=== PATIENT | female | born 1970 | race Caucasian/White ===

== ENCOUNTER 2019-08-16 16:38 | Outpatient (CLI) | payer OTHER, SELFPAY ==
--- NOTE | ~2019-08-16 | MR_ITS ---
EXAMINATION: MR brain/brain stem wo con DATE: 08/16/2019 17:45 INDICATION: Loss of memory. TECHNIQUE: Magnetic resonance imaging (MRI) of the brain and brainstem was performed without intraven ous contrast. Sequences included sagittal and axial T1-weighted FSE, axial diffusion-weighted FS EPI, axial T2*-weighted GRE, axial T2-weighted FLAIR Propeller, and axial T2-weighted Propeller. Apparent diffusion coefficient (ADC) maps were created. COMPARISON: None. FINDINGS: There is no intracranial hemorrhage, acute infarction, or abnormal intracranial mass lesion . The ventricles are normal in size. There is a mucous retention cyst in left maxillary sinus. There is mild mucosal thickening in the ethmoid sinuses. The orbits are normal. The mastoid air cells are n ormal. IMPRESSION: 1. Normal brain. Reviewed, dictated and finalized at location A. IMPRESSION: 1. Normal brain.
== END 2019-08-16 16:39 | disposition home or self-care (01) ==
PROVIDERS: PCP Nurse Practitioner Family; Visit Provider Nurse Practitioner Family
DX: R41.3 Other amnesia (principal); Z87.828 Personal history of other (healed) physical injury and trauma; R41.840 Attention and concentration deficit
CPT/HCPCS: 70551

== ENCOUNTER → 2020-01-04 15:16 | Outpatient (CLI) | payer OTHER, SELFPAY ==
--- NOTE | ~2020-01-04 | MR_ITS ---
EXAMINATION: MR humerus LT wo con DATE: 01/04/2020 16:06 INDICATION: Left upper extremity pain TECHNIQUE: Magnetic resonance imaging (MRI) of the left upper/humerus was performed without intraveno us contrast. A marker was placed over the site of maximal pain. Sequences included axial, sagittal a nd coronal T1-weighted FSE, axial T2-weighted FS FSE, and sagittal and coronal fluid sensitive FSE ST IR. COMPARISON: None. FINDINGS: Bone alignment is normal with normal marrow signal throughout. No joint effusions at the left shoulde r or elbow. The musculature demonstrates normal bulk and signal. Visualized portions of the tendons a ppear normal. No reactive edema. No abnormal masses or fluid collections identified. IMPRESSION: 1. Normal MRI of the left upper arm/humerus. No etiology identified for reported pain at the proximal /lateral left upper arm. Reviewed, dictated and finalized at location A. IMPRESSION: 1. Normal MRI of the left upper arm/humerus. No etiology identified for reporte d pain at the proximal/lateral left upper arm.
== END ==
PROVIDERS: Visit Provider Nurse Practitioner Family
DX: M79.602 Pain in left arm (principal); M25.612 Stiffness of left shoulder, not elsewhere classified
CPT/HCPCS: 73218

== ENCOUNTER 2020-03-15 11:21 | Emergency (ER) | payer OTHER, SELFPAY ==
--- NOTE | ~2020-03-15 | XR_ITS ---
EXAMINATION: XR chest 2V 03/15/2020 11:49 INDICATION: Hypertension. Shortness of breath. PROCEDURE: PA and lateral views of the chest COMPARISON: 07/06/2014 FINDINGS: The lungs are clear. The cardiomediastinal silhouette is within normal limits. There are no pleural effusions. There is no pneumothorax suspected. IMPRESSION: 1: NO ACUTE CARDIOPULMONARY DISEASE. Reviewed, dictated and finalized at location B.
--- NOTE | ~2020-03-15 | CT_ITS ---
EXAMINATION: CTA chest PE protocol DATE: 03/15/2020 13:45 CDT INDICATION: Chest palpitations TECHNIQUE: Computed tomographic angiography (CTA) of the chest was performed with 100 mL Omnipaque-35 0 intravenous contrast. The dose-length product was 209.67 mGy-cm. Maximum intensity projection 3D-re constructions of the aorta and other arteries were constructed by the technologist on a separate work station. Automated exposure control and iterative reconstruction technique were employed. COMPARISON: CT dated 01/14/2018 FINDINGS: The study is technically adequate without evidence for pulmonary embolism. Heart size charly l. No significant pleural or pericardial effusion. No thoracic lymphadenopathy. Bibasilar dependent a telectasis. No endobronchial lesions. Visualized aspects of the upper abdomen are unremarkable. Study limited by motion artifact. No endobronchial lesions. No suspicious pulmonary nodules or masses. No pneumothorax. Calcified granuloma in the lingula. No acute osseous abnormality. IMPRESSION: 1. No evidence for pulmonary embolism. No acute cardiopulmonary disease. Reviewed, dictated and finalized at location B.
[2020-03-15 11:25] VITALS: BP 158/88; PULSE 99; RESP 17; TEMP 36.3; O2SAT 100
--- NOTE | 2020-03-15 11:30 | ECG_ITS ---
Measurements Intervals [place] Rate: 82 P: 69 W[place]: 135 QRS: 56 QRSD: 73 T: 52 QT: 343 QTc: 402 Interpretive Statements SINUS RHYTHM WITH SINUS ARRHYTHMIA LOW QRS VOLTAGE IN PRECORDIAL LEADS BORDERLINE ST ABNORMALITY- ANTEROLATERAL LEADS BASELINE ARTIFACT- I, II, AVR, AVL BORDERLINE ECG Electronically Signed On 03-15-2020 11:52:49 CDT by Flo Gipson D.O.
[2020-03-15 11:53] LABS: Basophils Percent Auto 0.5 % (0.2-1.2); Eosinophils Percent Auto 0.3 % (0-4.4); Hematocrit 41.9 % (37.0-47.0); Hemoglobin 13.6 g/dL (12.0-15.0); Immature Granulocyte Absolute 0.01 K/mm3 (0.00-0.031); Immature Granulocyte Percent A 0.2 % (0-0.5); Lymphocytes Absolute Auto 0.82 K/mm3 (0.9-3.2); Lymphocytes Percent Auto 12.5 % (18.3-44.2); Mean Corpuscular HGB Conc 32.5 g/dl (32-36); Mean Corpuscular Hemoglobin 29.4 pg (26-34); Mean Corpuscular Volume 90.5 fl (80-100); Mean Platelet Volume 9.2 fl (7.4-10.4); Monocytes Absolute Auto 0.3 K/mm3 (0.1-0.6); Monocytes Percent Auto 5.2 % (2.6-8.5); Neutrophils Absolute Auto 5.3 K/mm3 (1.3-6.7); Neutrophils Percent Auto 81.3 % (45.5-73.1); Platelet Count Result 313 k/mm3 (150-375); Red Blood Count 4.63 M/mm3 (4.2-5.4); Red Cell Distribution Width 13.4 % (11.5-14.5); White Blood Count 6.6 K/mm3 (4.5-10.0)
[2020-03-15 12:03] LABS: INR 0.9; Prothrombin Time 12.2 Seconds (11.1-14.7)
[2020-03-15 12:04] LABS: Partial Thromboplastin Time 28.1 SECONDS (22.3-36.8)
[2020-03-15 12:06] LABS: Anion Gap 11 mmol/L (8-16); Blood Urea Nitrogen 12 mg/dL (7-17); Calcium 9.9 mg/dL (8.4-10.2); Carbon Dioxide 25 mmol/L (22-30); Chloride 105 mmol/L (98-107); Estimated CRCL calculation 70 ml/min; Estimated Glomerular Filt Rate > 60; Glucose 96 mg/dL (65-105); Potassium 3.8 mmol/L (3.4-5.0); Sodium 141 mmol/L (137-145)
[2020-03-15 12:18] LABS: Troponin I < 0.012 ng/mL (0.000-0.034)
--- NOTE | 2020-03-15 12:23 | ED.ARRPALP ---
HPI - Arrhythmia/Palpitations General Chief Complaint: Arrhythmia/Palpitations Stated Complaint: high blood pressure, light headed Time Seen by Provider: 03/15/20 11:46 Source: patient and family Mode of arrival: ambulatory Limitations: no limitations History of Present Illness HPI narrative: Patient is a 49-year-old female who presents to emergency department for evaluation of palpitations and chest heaviness that began last night patient notes that she has experienced the symptoms since last night evening which is new denies prior occurrence patient notes she has had the sensation of a rapid heartbeat. Patient notes today on the route to the emergency department she had 2 short-lived episodes of left-sided chest achiness which resolved and have not recurred. Patient has not taken anything for her symptoms denies new medications or recent illness Related Data Home Medications Medication Instructions Recorded Confirmed No Home Medications 03/15/20 03/15/20 Allergies Allergy/AdvReac Type Severity Reaction Status Date / Time No Known Allergies Allergy Verified 03/15/20 11:30 Review of Systems Review of Systems: All systems reviewed & are unremarkable except as noted in HPI and below PMFSH Past Medical History Medical History (Updated 03/15/20 @ 15:53 by Blayne Austin PA-C) History of colon cancer Surgical History Surgical History H/O colectomy Family History Family History (Updated 12/22/18 @ 07:34 by DOCTOR UNKNOWN) Mother Family history of osteoporosis Family history of arthritis Family history of osteoarthritis Father Family history of malignant neoplasm of esophagus Patient's father is in good health Grandparent Family history of dementia Diabetes mellitus Other Cerebrovascular accident Social History Social History Smoking status: Never smoker Alcohol intake: never Gender identity (if verbalized by the patient): Female Exam Narrative: Exam Narrative: GENERAL: Well-appearing, well-nourished, and in no acute distress. HEAD: Normocephalic, atraumatic. EYES: PERRLA and EOMI. ENT: Nares clear, no rhinorrhea or epistaxis. Mucous membranes moist. CHEST: Clear to auscultation. No respiratory distress. No wheezes rales or rhonchi HEART: Regular rate and rhythm. No murmur heard. Normal peripheral pulses. ABDOMEN: Soft, nontender, nondistended, normal active bowel sounds. EXTREMITIES: Normal range of motion. No edema. SKIN: Warm, dry, no rash. NEURO: No focal deficits. Alert and oriented x3. Cranial nerves II through XII grossly intact PSYCH: Normal mood and affect. Course Course Emergency Course: Patient was evaluated in the emergency department found to be in no distress normal vital signs did not require any interventions no high risk changes in the blood work or imaging made aware of case findings treatment plan and diagnosis agreeing to follow with primary care Vital Signs Vital signs: Vital Signs Temperature 97.4 F L 03/15/20 11:25 Pulse Rate 99 03/15/20 11:25 Respiratory Rate 17 03/15/20 11:25 Blood Pressure 158/88 H 03/15/20 11:25 Pulse Oximetry 100 03/15/20 11:25 Temperature 97.4 F L 03/15/20 11:25 Pulse Rate 83 03/15/20 14:15 Respiratory Rate 16 03/15/20 14:15 Blood Pressure 132/77 03/15/20 14:15 Pulse Oximetry 100 03/15/20 14:15 MDM - Arrhythmia/Palpitations MDM Narrative Medical decision making narrative: Patients EKGs and labs are without significant high risk changes. Cardiac risk factors were reviewed. Patient is felt likely to be low risk for ACS and reasonable for further risk stratification testing as an outpatient. Pain was not sudden or maximal in onset without tearing or ripping. quality. No other signs or symptoms to suggest aortic dissection. A low-risk Wells criteria is noted. PE is felt to be unli
[2020-03-15 12:47] VITALS: BP 119/79; PULSE 67; RESP 16; O2SAT 100
[2020-03-15 14:15] VITALS: BP 132/77; PULSE 83; RESP 16; O2SAT 100
[2020-03-15 15:41] LABS: Troponin I < 0.012 ng/mL (0.000-0.034)
[2020-03-15 16:01] VITALS: BP 123/89; PULSE 86; RESP 14; O2SAT 100
== END 2020-03-15 16:17 | disposition home or self-care (01) ==
PROVIDERS: Emergency Medicine Emergency Medical Services; Emergency Provider Emergency Medicine; PCP Nurse Practitioner Family
DX: R00.2 Palpitations (principal); Z85.038 Personal history of other malignant neoplasm of large intestine; R94.31 Abnormal electrocardiogram [ECG] [EKG]
CPT/HCPCS: 36415; 71046; 71275; 80048; 84484; 85025; 85380; 85610; 85730; 93005; 99284; Q9967

== ENCOUNTER 2021-04-11 01:35 | Day surgery (SDC) | payer OTHER, SELFPAY ==
[2021-03-27 13:44] VITALS: BMI 22.1
[2021-04-11 08:14] VITALS: BP 137/77; PULSE 73; RESP 20; TEMP 36.5; O2SAT 100; BMI 21.4
[2021-04-11] MEDS: LACTATED RINGERS 1,000 ML 150 ML IV CONT (08:32)
--- NOTE | 2021-04-11 08:54 | WPDANESEPPF ---
Anes - Initial Pre Proc Eval Procedure: Operation Date: 04/11/21 09:00 Proposed Procedures p Screening Colonoscopy - Robin Patel MD Date/Time: 04/11/21 08:54 Surgeon: Robin Patel MD Pre Op Diagnosis: hx of colon ca Patient Data Age: 50 Gender: F Height: 1.7 m Weight: 62 kg Last Vital Signs Temp 97.7 F 04/11/21 08:14 Pulse 73 04/11/21 08:14 Resp 20 04/11/21 08:14 BP 137/77 04/11/21 08:14 Pulse Ox 100 04/11/21 08:14 Allergies Allergy/AdvReac Type Severity Reaction Status Date / Time No Known Allergies Allergy Verified 04/11/21 08:13 Home Medications Medication Instructions Recorded Confirmed Type acyclovir 400 mg PO DAILY PRN 03/27/21 04/11/21 History Patient hx anesthesia problems: none Family hx anesthesia problems: none Results Review: All pre-operative results and documents have been reviewed as part of the pre-operative evaluation. [facility] Past Medical History Medical History (Updated 03/16/20 @ 00:00 by Jennifer Crowder) History of colon cancer Surgical History Surgical History H/O colectomy Family History Family History (Updated 12/22/18 @ 07:34 by DOCTOR UNKNOWN) Mother Family history of osteoporosis Family history of arthritis Family history of osteoarthritis Father Family history of malignant neoplasm of esophagus Patient's father is in good health Grandparent Family history of dementia Diabetes mellitus Other Cerebrovascular accident Social History Social History Smoking status: Never smoker Alcohol intake: never Substance use: never Substance use type: does not use Living arrangements: with family Gender identity (if verbalized by the patient): Female Spiritual care concerns: No Anes - Eval Final PreProcedure Day of Procedure 04/11/21 08:54 Patient weight: normal Heart: regular rate and rhythm Lungs: clear to auscultation Airway: Mallampati scale class II Neurological: alert and oriented Last oral intake: >/= 8 hours ASA classification: II Emergent: no Anesthetic plan: proceed Anesthesia type and monitoring: general GIVS and standard monitoring Results Review: All pre-operative results and documents have been reviewed as part of the pre-operative evaluation. Informed Consent: The patient's anesthetic plan and its attendant risks and benefits were discussed with the patient/family/POA. Questions were solicited and answers provided to the satisfaction of the patient/family/POA.
[2021-04-11 09:56] LABS: Beta HCG Quantitative < 2.39 mIU/ML
--- NOTE | 2021-04-11 09:57 | PM.HPGS ---
History of Present Illness History of Present Illness Consent: Risks, benefits, and alternatives have been discussed and questions answered. Patient agrees to proceed with procedure. 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 Review of Systems Constitutional: Constitutional: Denies headache(s) and Denies weakness Eyes: Eyes: Denies blurry vision ENT: Reports Normal hearing present, Denies headache(s) and Denies neck pain Cardiovascular: Cardiovascular: Denies chest pain and Denies dyspnea Respiratory: Respiratory: Denies dyspnea Gastrointestinal: Gastrointestinal: Reports no additional gastrointestinal complaints Genitourinary: Genitourinary: Denies dysuria Musculoskeletal: Musculoskeletal: Denies neck pain Integumentary/Breasts: Skin/Breast: Denies dry skin Neurologic: Reports Normal hearing present, Denies headache(s) and Denies weakness Psychiatric: Psychiatric: Denies anxiety Endocrine: Endocrine: Denies change in body appearance Hematologic/Lymphatic: Hematologic/Lymphatic: Denies easy bleeding Allergic/Immunologic: Allergic/Immunologic: Denies urticaria PMFSH Past Medical History Medical History (Updated 04/11/21 @ 09:58 by Robin Patel MD) History of colon cancer Surgical History Surgical History H/O colectomy Family History Family History (Updated 12/22/18 @ 07:34 by DOCTOR UNKNOWN) Mother Family history of osteoporosis Family history of arthritis Family history of osteoarthritis Father Family history of malignant neoplasm of esophagus Patient's father is in good health Grandparent Family history of dementia Diabetes mellitus Other Cerebrovascular accident Social History Social History Smoking status: Never smoker Alcohol intake: never Substance use: never Substance use type: does not use Living arrangements: with family Gender identity (if verbalized by the patient): Female Spiritual care concerns: No Meds Home Medications and Allergies Home Medications Medication Instructions Recorded Confirmed Type acyclovir 400 mg PO DAILY PRN 03/27/21 04/11/21 History Allergies Allergy/AdvReac Type Severity Reaction Status Date / Time No Known Allergies Allergy Verified 04/11/21 08:13 Vital Signs Vital Signs - 24 hr 11/19/21 08:14 04/11/21 09:09 Temperature 97.7 F Pulse Rate 73 74 Respiratory Rate 20 21 H Blood Pressure 137/77 97/56 L Pulse Oximetry 100 100 Exam Const: General: comfortable and no acute distress HENMT: General nose exam: Normal nares present Eyes: General: appearance normal, both eyes and all related structures Neck: Neck: no JVD Resp: Auscultation: clear to auscultation bilaterally Cardio: Rate: regular rate Rhythm: regular rhythm GI: Inspection: non-distended GI Palp: Yes Soft to palpation Skin: General skin exam: normal color Neuro: General: gait normal Speech: normal speech Extrem: General: normal to inspection Psych: Mental Status: mental status grossly normal Assessment and Plan Assessment and plan (1) History of colon cancer: Code(s): Z85.038 - Personal history of other malignant neoplasm of large intestine Status: Inactive Assessment and Plan: colonoscopy
[2021-04-11 10:27] VITALS: BP 99/58; PULSE 70; RESP 17; O2SAT 100
[2021-04-11 10:37] VITALS: BP 98/62; PULSE 73; RESP 14; O2SAT 100
[2021-04-11 10:47] VITALS: BP 114/67; PULSE 67; RESP 16; O2SAT 100
== END 2021-04-11 10:49 | disposition home or self-care (01) ==
PROVIDERS: Anesthesiology; PCP Nurse Practitioner Family; Visit Provider Internal Medicine Gastroenterology
PROC: 0DJD8ZZ Inspection of Lower Intestinal Tract, Via Natural or Artificial Opening Endoscopic (ICD-10-PCS; CPT 45378; principal; 2021-04-11 09:00)
DX: Z12.11 Encounter for screening for malignant neoplasm of colon (principal); Z85.038 Personal history of other malignant neoplasm of large intestine; K63.89 Other specified diseases of intestine; K64.8 Other hemorrhoids; Z98.0 Intestinal bypass and anastomosis status
CPT/HCPCS: 45378; 36415; 84702; J2704; J7120

== ENCOUNTER 2022-07-23 16:01 | Outpatient (CLI) | payer OTHER, SELFPAY ==
--- NOTE | ~2022-07-23 | CT_ITS ---
EXAMINATION: CT abdomen pelvis wo con DATE: 07/23/2022 16:33 INDICATION: Right flank and bilateral groin pain TECHNIQUE: Computed tomography (CT) of the abdomen and pelvis was performed without intravenous contr ast. The dose-length product (DLP) was 312.10 mGy-cm. Automated exposure control and iterative recons truction technique were employed. COMPARISON: 01/14/2018 FINDINGS: Minimal dependent atelectasis is present in the lung bases. The heart size is normal. The l iver, spleen, pancreas, gallbladder, and adrenal glands are normal. The right kidney is unremarkable. There is a 2 mm nonobstructing stone of the left kidney lower pole. No stones are identified in the ureters or bladder. No hydronephrosis or hydroureter. No pathologically enlarged abdominal or pelvic lymph nodes are identified. No free intraperitoneal gas or evidence of bowel obstruction. A surgical anastomosis is noted in the rectum. The appendix is normal. There is mild lumbar spondylosis. IMPRESSION: 1. No CT correlate for the patient's symptoms. 2. Nonobstructing left nephrolithiasis. Reviewed, dictated and finalized at location F. CAULKER
== END 2022-07-23 16:02 | disposition home or self-care (01) ==
LOC: ANHIMG 16:03
PROVIDERS: PCP Nurse Practitioner Family; Visit Provider Nurse Practitioner Family
DX: R10.31 Right lower quadrant pain (principal); R10.32 Left lower quadrant pain; R10.9 Unspecified abdominal pain; Q61.02 Congenital multiple renal cysts; N20.0 Calculus of kidney
CPT/HCPCS: 74176

== ENCOUNTER → 2022-09-16 16:03 | Outpatient (CLI) | payer OTHER, SELFPAY ==
--- NOTE | ~2022-09-16 | XR_ITS ---
EXAM: XR lumbar spine 2-3V DATE: 09/16/2022 16:36 HISTORY: Acute low back pain . COMPARISON: None available. FINDINGS: Suture line projecting in the deep pelvis. 5 nonrib-bearing lumbar-type vertebral bodies. P edicles intact. Normal vertebral body alignment. Vertebral body heights preserved. Mild multilevel di sc space narrowing and marginal osteophytosis, most evident at L2-3. Mild facet sclerosis and hypertr ophy in the lower lumbar spine No fracture or dislocation. IMPRESSION: Mild multilevel degenerative disc disease. Mild lower lumbar facet arthropathy. Reviewed, dictated and finalized at location K.
== END ==
PROVIDERS: PCP Nurse Practitioner Family; Visit Provider Nurse Practitioner Family
DX: M51.36 Other intervertebral disc degeneration, lumbar region (principal); M47.816 Spondylosis without myelopathy or radiculopathy, lumbar region
CPT/HCPCS: 72100

== ENCOUNTER 2024-09-04 00:11 | Day surgery (SDC) | payer OTHER, SELFPAY ==
[2024-08-28 10:14] VITALS: BMI 21.9
--- OUTSIDE RECORDS SUMMARY | 2024-09-04 00:13 | XMS_ITS | Encounter Summary ---
Author Organization [facility] Address Formerly [facility] [place] [address] Care Team Providers Care Precision Thread Grinder Operator Name Role Phone Cecilia Cárdenas SEN Primary Care Provider [phone] Encounter Details Date Type Department Care Team (Late st Contact Info) Description 04/22/2020 [employer] Message Enc [facility] [address] [address] [facility], 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 Unable to assess 04/04/2020 11:18 AM CS T documented as of this encounter Plan of Treatment Not on file documented as of this encounter Visit Diagnoses Not on filedocumented in this encounter Additional Health Concerns Infection Onset Date Last Indicated Resolved Time COVID-19 Rule Out 03/20/2020 03/20/2020 05/19/2020 12:33 AM HOMOGENIZER OPERATOR documented as of this encounter Care Teams Precision Thread Grinder Operator Relationship Specialty Start Date End Date Cecilia Cárdenas FNP [address] [place] [id number] PCP - General Nurse Practitioner Family 07/31/19 documented as of this encounter
--- OUTSIDE RECORDS SUMMARY | 2024-09-04 00:13 | XMS_ITS | Clinical Summary ---
Author Organization [facility] Address [address] [place] [address] Care Team Providers Care Reagent Tender Helper Name Role Phone Cecilia Cárdenas SEN Primary Care Provider [phone] Allergies No known active allergies Medications Cholecalciferol (VITAMIN D3) 50 MCG (1999) Tab Take 1 tablet (50 mcg total) by mouth daily. Active B nyuxooi-M-dyyfo acid 0.8 mg (DIALYVITE/NEPHR O-ALISIA) Tab tablet Take 1 tablet by mouth daily. Active fluticasone propionate (FLONASE) 50 MCG/ACT nasal sprayIndications :Dysfunction of both eustachian tubes 2 sprays by Nasal route daily. 15.8 mL 2 03/26/2023 Active multi vitamin/minerals (THERA-M ENHANCED) tablet Take 1 tablet by mouth daily. ALIVE Active acyclovir (ZOVIRAX) 400 MG tabletIndication s:Rash and nonspecific skin eruption TAKE 1 TABLET BY MOUTH THREE TIMES A DAY 90 tablet 3 04/25/2024 Active Active Problems Problem Noted Date Diagnosed Date Personal history of COVID-19 07/20/2023 Body mass index (BMI) of 23.0 to 23.9 in adult 0 07/20/2023 Acute right-sided low back pain without sciatica 07/15/2022 Bilateral groin pain 07/15/2022 Right flank pain 07/15/2022 Multiple renal cysts 07/15/2022 Polyarthralgia 03/04/2021 Vitamin B 12 deficiency 03/04/2021 Vitamin D deficiency 03/04/2021 Right elbow pain 03/04/2021 Mass of right elbow 03/04/2021 Primary osteoarthritis involving multiple joints 01/06/2021 Vitiligo 01/06/2021 SOB (shortness of breath) 03/20/2020 Palpitations 03/20/2020 Lightheadedness 03/20/2020 Memory difficulties 08/08/2019 Hx of head injury without skull fracture 020 Concentration deficit 08/08/2019 Chest pain, unspecified type 08/08/2019 Malignant neoplasm of sigmoid colon ([facility]) 02/21/2018 Resolved Problems Problem Noted Date Diagnosed Date Resolved Date Encounter for medical examin ation to establish care 08/08/2019 02/02/2020 Encounter for lipid screenin g for cardiovascular disease 08/08/2019 02/02/2020 Immunizations Immunization Administration Dates Next Due Influenza (Generic) 03/21/2024 Influenza Adult (Generic) 03/09/2023,01/22/2022, 03/22/2019 PFIZER COVID-19 (ORIGINAL FO RMULATION, PURPLE CAP) mRNA, LNP-S, PF, 30 MCG/0.3 ML DOSE 12/29/2020,12/08/2020 Tdap (Adacel) 10/17/2019 Tdap (Generic) 04/25/2008 Family History Medical History Relation Comments Cancer Father Esophageal cance r Cancer Maternal Grandfather Dementia Maternal Grandmother Arthritis Mother Osteoporosis Cancer Mother breast Osteoporosis Mother Cancer Paternal Grandfather Diabetes Paternal Grandmother Relation Status Comments Father (Age 61) Maternal Grandfather Maternal Grandmother Mother Alive Paternal Grandfather Paternal Grandmother Social History Tobacco Use Types Packs/Day Years Used Date Smoking Tobacco: Never Smokeless Tobacco: Never Alcohol Use Standard Drinks/Week Comments Not Currently 0 (1 standard drink = 0.6 oz pur e alcohol) PHQ-2 Answer Date Recorded Patient Health Questionnaire-2 Score 0 07/20/2023 Comments No Sex and Gender Information Value Date Recorded Sex Assigned at Not on file Legal Sex Female 2:39 PM OPERATING ROOM SPECIALIST Gender Identity Not on file Sexual Orientation Not on file 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 Not on file Not on wil e Last Filed Vital Signs Vital Sign Reading Time Taken Comments Blood Pressure 123/73 07/20/2023 3:50 PM OPERATING ROOM SPECIALIST Pulse 75 07/20/2023 3:50 PM OPERATING ROOM SPECIALIST Temperature 36.9 C (98.4 F) 07/20/2023 3:50 PM OPERATING ROOM SPECIALIST Respiratory Rate 16 07/20/2023 3:50 PM OPERATING ROOM SPECIALIST Oxygen Saturation 96% 07/20/2023 3:50 PM OPERATING ROOM SPECIALIST Inhaled Oxygen Concentration - - Weight 68.5 kg (151 lb) 07/20/2023 3:50 PM OPERATING ROOM SPECIALIST Height 170.2 cm (5' 7 ) 07/20/2023 3:50 PM OPERATING ROOM SPECIALIST Body Mass Index 23.65 07/20/2023 3:50 PM OPERATING ROOM SPECIALIST Plan of Treatment Health Maintenance Due Date Last Done Comments Hepatitis B Vaccines (1 of 3 - 19+ 3-dose series) 09/06/1987 Cervical Cancer Screening Pa p with HPV Testing (Age 30 to 64) Every 5 Years 1998 Zoster Vaccines (1 of 2) 2018 COVID-19 Vaccine ( - 2023-2 5 season) 2024 12/29/2020, 12/08/2020 PHQ-2 (Physician [place]) 05/24/2024 07/20/2023 Annual Physical 07/20/2024 07/20/2023 Cervical Cancer Screening Pa p Smear (Age 30 to 64) Every 3 Years 01/05/2026 01/05/2023 Cervical Cancer Screening with HPV 01/05/2026 Mammogram Screening 03/14/2026 03/14/2024, 03/11/2023, 12/20/2020 DTaP, Tdap and Td Vaccines ( 3 - Td or Tdap) 10/16/2029 10/17/2019, 04/25/2008 Hepatitis C Completed 03/17/2021 Colorectal Cancer Screening Colonoscopy (10 Years) Discontinued 04/11/2021 Meningococcal B Vaccine Aged Out No l onger eligible based on patient's age to complete this topic Meningococcal Vaccine Aged Out No truong kayy eligible based on patient's age to complete this topic Pneumococcal Vaccine: Pediatrics (0 to 5 Years) and At-Risk Patients (6 to 49 Years) Aged Out No longer eligible based on patient's age to complete this topic RSV Immunizations Under 20 Months Aged Out No longer eligible based on patient's age to complete this topic Procedures Procedure Name Priority Date/Time Associated Diagnosis Comments MAMMOGRAM GENERIC (SCAN ORDER) 03/14/2024 OUTSIDE CYTOPATH CERV/VAG INTERPRET (PAP) (SCAN ORDER) 01/05/2023 COLONOSCOPY GENERIC (SCAN ORDER) 04/11/2021 HEPATITIS C ANTIBODY Routine 03/17/2021 7:16 AM CDT Vitamin B 12 deficiency Vitamin D deficiency Need for hepatitis C screening test Screening for endocrine, nutritional, metabolic and immunity disorder Encounter for lipid screening for cardiovascular disease Encounter for medical examination to establish care from Last 3 Months or Most Recently Relevant to Health Maintenance Results * MAMMOGRAM GENERIC (SCAN ORDER) (03/14/2024) Anatomical Region Laterality Modality Other 03/14/2024 [facility] Scanned SCANNING Final Resu lt * PAP SMEAR (SCAN ORDER) (01/05/2023) 01/05/2023 [facility] Scanned SCANNING Final Resu lt * COLONOSCOPY GENERIC (SCAN ORDER) (04/11/2021) 04/11/2021 [facility] Scanned SCANNING Final Resu lt * HEPATITIS C ANTIBODY (03/17/2021 7:16 AM CDT) HEPATITIS C AB <0.1 0.0 - 0.9 s/co ratio [facility] 1 Comment: Negative: < 0.8 Indeterminate: 0.8 - 0.9 Positive: > 0.9 The CDC recommends that a positive HCV antibody result be followed up with a HCV Nucleic Acid Amplification test (520431). 03/17/2021 7:16 AM CDT 03/17/2021 Narrative [facility] - 03/18/2021 12:09 PM CDT Performed at: [facility] [id number] Farm Helper: Chase Groves PhD, Phone: [phone] Cecilia [facility] Final Result [facility] [address] [place] [address] [facility] 1 from Last 3 Months or Most Recently Relevant to Health Maintenance Insurance Care Teams Reagent Tender Helper Relationship Specialty Start Date End Date Cecilia Cárdenas FNP [address] [place] [address] [phone] PCP - General Nurse Practitioner Family 07/31/19
--- OUTSIDE RECORDS SUMMARY | 2024-09-04 00:13 | XMS_ITS | Clinical Summary ---
Author Organization [facility] Address [address] [place] [address] Phone Care Team Providers Care Manager Mining Name Role Phone Alexander Choudhary DO Unavailable [phone] Cecilia Cárdenas NP Primary Care Provider [phone] Chantel Arroyo MD Unavailable [phone] Allergies No known active allergies Medications cholecalciferol, vitamin D3, (CHOLECALCIFEROL , VIT D3,,BULK,) 100,000 unit/gram powder Take by mouth. Active Active Problems Problem Noted Date Diagnosed Date Malignant neoplasm of sigmoid colon 02/21/2018 Medical History Medical History Date Comments Colon cancer (HCC) Family History Medical History Relation Name Comments Breast cancer Mother 70's Relation Name Status Comments Mother Social History Tobacco Use Types Packs/Day Years Used Date Smoking Tobacco: Every Day Smokeless Tobacco: Never Alcohol Use Standard Drinks/Week Comments No 0 (1 standard drink = 0.6 oz pur e alcohol) Personal Safety Answer Date Recorded Getting School Help Needed Not on file 07/18 Comments No Sex and Gender Information Value Date Recorded Sex Assigned at Not on file 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 Gender Identity Not on file Sexual Orientation Not on file Obstetrics History Para Term AB IAB SAB Ectopic Multiple Livin g Live Births 1 1 1 Date Outcome GA Total Labor Labor/2nd/3rd Weight Sex Type Anes PTL Danielle A1 A5 Name Clin Term Last Filed Vital Signs Vital Sign Reading Time Taken Comments Blood Pressure 116/75 02/21/2018 2:55 PM CDT Pulse 76 02/21/2018 2:55 PM CDT Temperature - - Respiratory Rate - - Oxygen Saturation - - Inhaled Oxygen Concentration - - Weight 63.5 kg (140 lb) 02/21/2018 2:55 PM CDT Height 167.6 cm (5' 6 ) 02/21/2018 2:55 PM CDT Body Mass Index 22.6 02/21/2018 2:55 PM CDT Plan of Treatment Health Maintenance Due Date Last Done Comments Cervical Cancer Screening 1968 Colon Cancer Screening-Colonoscopy 1968 Depression Screening 1968 Hepatitis C Screening 1968 Hepatitis B Screening 1986 Regular Well Visit/Exam 18-64 1986 Pneumococcal vaccine <65 (1 of 2 - PCV) 09/06/1987 Zoster Vaccine (1 of 2) 2018 Covid-19 Vaccine (3 - 2023-2 5 season) 2024 12/29/2020, 12/08/2020 Influenza Vaccine (#1) 2024 , 01/22/2022, 03/22/2019 Breast Cancer Screening-Mammogram 03/14/2025 03/14/2024, 03/11/2023, 03/10/2022, Additional history exists DTaP/Tdap/Td Vaccine (3 - Td or Tdap) 10/16/2029 10/17/2019, 04/25/2008 Procedures Procedure Name Priority Date/Time Associated Diagnosis Comments SCREENING MAMMOGRAM BILATERAL W BRANDON Schedule Routine, Read Routine (OP Routine) 03/14/2024 3:47 PM CDT Screening mammogram, encounter for from Last 3 Months or Most Recently Relevant to Health Maintenance Results * Screening Mammogram Bilateral W Brandon (03/14/2024 3:47 PM CDT) Anatomical Region Laterality Modality Breast Bilateral Mammography Impressions 03/14/2024 11:06 PM CDT BI-RADS ATLAS category (overall): 1 - Negative There is no mammographic evidence of malignancy. A 1 year screening mammogram is recommended. The patient has been or will be contacted. We recommend annual screening mammography for women at average risk of breast cancer beginning at age 40, based on guidelines of the [place] [employer] (ACR Practice Parameter for the Performance of Screening and Diagnostic Mammography) and [place] [employer]. For women with and elevated risk of breast cancer, please refer to the ACR Practice Parameter for specific screening recommendations. The patient will be entered into a reminder system with a target due date of 1 year for her next screening exam. Narrative 03/14/2024 11:06 PM CDT Screening Mammogram Bilateral W Brandon: 03/14/24 The study was acquired using full field digital technology and interpreted from soft copy. 2D digital mammographic views, as well as 3D digital tomosynthesis were performed in the CC and MLO projections. CLINICAL: Screening mammogram, encounter for. Medical history includes colon cancer. History of breast cancer in Mother. COMPARISONS: 03/11/2023 Screening Mammogram Bilateral W Brandon 03/10/2022 Screening Mammogram Bilateral W Brandon 12/20/2020 Screening Mammogram Bilateral W Brandon 12/20/2019 Screening Mammogram Bilateral W Brandon 08/31/2018 Screening Mammogram Bilateral W Brandon 09/03/2017 Screening Mammogram Bilateral W Brandon 07/31/2016 Breast Imaging Screening Outside Reference 07/17/2015 Breast Imaging US Outside Reference 07/17/2015 Breast Imaging Diagnostic Outside Reference 07/11/2015 Breast Imaging Screening Outside Reference BREAST TISSUE: The breasts are heterogeneously dense, which may obscure small masses. FINDINGS: No suspicious masses, suspicious calcifications, or other suspicious findings are seen within either breast. There has been no suspicious change. us Self Screening Mammogram IMG MAMMO PROCEDURES Fi nal Result from Last 3 Months or Most Recently Relevant to Health Maintenance Insurance [facility] Care Teams Manager Mining Relationship Specialty Start Date End Date Cecilia Cárdenas NP [address] [place] [address] [phone] PCP - General 11/03/19 Alexander Choudhary DO [address] [place] [id number] Medical Oncologist/Environmental Services Project Manager Hematology and Oncology 02/18/18 Chantel Arroyo MD [address] [id number] Referring Physician Gynecology 03/10/22
--- OUTSIDE RECORDS SUMMARY | 2024-09-04 00:13 | XMS_ITS | Clinical Summary ---
Author Organization [facility] Address [address], [address] [address] Phone Care Team Providers Care Veneer Layer Name Role Phone Venkata Caldera DO Unavailable [phone] Oscar Bernal DO Primary Care Provider [phone] Allergies No known active allergies Medications Cholecalciferol (VITAMIN D-3 PO) Take 10,000 Units by mouth daily (with dinner). Active polyethylene glycol (MIRALAX) Powder Use entire 255g bottle with 64oz of clear liquid as directed for colonoscopy prep. 255 g 8 Active polyethylene glycol (MIRALAX) Powder Use entire bottle of 255 grams of miralax for Colon prep as directed by office. 255 g 8 Active Family History Medical History Relation Name Comments Cancer Father Esophageal Breast Cancer Mother Relation Name Status Comments Father Mother Alive Social History Tobacco Use Types Packs/Day Years Used Date Smoking Tobacco: Never Smokeless Tobacco: Never Alcohol Use Standard Drinks/Week Comments Yes 0 (1 standard drink = 0.6 oz pur e alcohol) Social Comments Unknown Sex and Gender Information Value Date Recorded Sex Assigned at Not on file Legal Sex Female 7:20 PM CDT Gender Identity Not on file Sexual Orientation Not on file Last Filed Vital Signs Vital Sign Reading Time Taken Comments Blood Pressure - - Pulse - - Temperature - - Respiratory Rate - - Oxygen Saturation - - Inhaled Oxygen Concentration - - Weight 65.8 kg (145 lb) 11/05/2017 1:00 PM CDT Height 170.2 cm (5' 7 ) 11/05/2017 1:00 PM CDT Body Mass Index 22.71 11/05/2017 1:00 PM CDT Plan of Treatment Health Maintenance Due Date Last Done Comments Hepatitis C Virus (HCV) Screening 1968 TdaP Immunization 1968 Hepatitis B Immunization (1 of 3 - 19+ 3-dose series) 09/06/1987 Cologuard 2018 Immunochemical Fecal Occult Blood 2018 Pneumococcal Immunization (5 0+ years) (1 of 1 - PCV) 2018 Zoster Immunization (1 of 2) 2018 Colonoscopy 01/06/2021 01/06/2018, 11/05/2016 Colorectal Cancer Screening 01/06/2021 Influenza Immunization (#1) 2024 SARS-COV-2 Immunization ( - season) 2024 Respiratory Syncytial Virus (RSV) Immunization (Adult) (1 - 1-dose 75+ series) 09/06/2043 01/06/2018, 11/05/2016 Meningococcal Immunization (ACWY) Aged Out No longer eligible b ased on patient's age to complete this topic Rotavirus Immunization Aged Out No lo nger eligible based on patient's age to complete this topic Procedures Procedure Name Priority Date/Time Associated Diagnosis Comments COLONOSCOPY Routine 01/06/2018 from Last 3 Months or Most Recently Relevant to Health Maintenance Results * HM COLONOSCOPY (01/06/2018) Venkata Caldera DO PROCEDURE/MINOR SURGICAL ORDERA BLES Final Result from Last 3 Months or Most Recently Relevant to Health Maintenance Care Teams Veneer Layer Relationship Specialty Start Date End Date Oscar Bernal DO [address] [place] [address] PCP - General Internal Medicine 01/10/18 Venkata Caldera DO Gastroenterology 11/09/16
--- OUTSIDE RECORDS SUMMARY | 2024-09-04 00:13 | XMS_ITS | Encounter Summary ---
Author Organization [facility] Address [facility] [place] [address] Care Team Providers Care Union Carpenter Name Role Phone Cecilia Cárdenas SEN Primary Care Provider [phone] Encounter Details Date Type Department Care Team (Late st Contact Info) Description 04/01/2020 Abstract [facility] at [address] [address] [address] [place] Social History Tobacco Use Types Packs/Day Years Used Date Smoking Tobacco: Never Smokeless Tobacco: Never Alcohol Use Standard Drinks/Week Comments Not Currently 0 (1 standard drink = 0.6 oz pur e alcohol) Comments No Sex and Gender Information Value Date Recorded Sex Assigned at Not on file Legal Sex Female 2:39 PM HEALTH AND SAFETY CONSULTANT Gender Identity Not on file Sexual Orientation Not on file 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 Unable to assess 04/04/2020 11:18 AM CS T documented as of this encounter Plan of Treatment Not on file documented as of this encounter Procedures Procedure Name Priority Date/Time Associated Diagnosis Comments FREE T3 Routine 04/19/2020 LIPID PANEL Routine 04/19/2020 THYROXINE, FREE (FT4) Routine 04/19/2020 THYROID STIM HORMONE TSH Routine 04/19/2020 PROTIME (OUTSIDE LAB) Routine 03/15/2020 CBC (OUTSIDE LAB) Routine 03/15/2020 BASIC METABOLIC PANEL Routine 03/15/2020 documented in this encounter Results * FREE T3 (04/19/2020) FREE T3 2.7 2.0 - 4.4 04/19/2020 [facility] Final Result * THYROID STIM HORMONE, TSH (04/19/2020) TSH 1.210 0.450 - 4.500 04/19/2020 [facility] Final Result * THYROXINE, FREE (FT4) (04/19/2020) Pathologist [facility] FREE T4 1.16 0.82 - 1.77 04/19/2020 [facility] Final Result * LIPID PANEL (04/19/2020) Pathologist [facility] CHOLESTEROL 170 HDL 44 TRIGLYCERIDES 76 LDL (CALCULATED) 112 04/19/2020 [facility] Edited Resul t - Final * PROTIME (OUTSIDE LAB) (03/15/2020) PROTIME 12.2 INR 0.9 03/15/2020 [facility] LAB-OUTSIDE/ABSTRACTED Final Result * BASIC METABOLIC PANEL (03/15/2020) SODIUM S/P/B 141 POTASSIUM S/P/B 3.8 CO2 25 CHLORIDE S/P/B 105 GLUCOSE 96 mg/dL CALCIUM S/P/B 9.9 BUN 12 CREATININE S/P/B 0.80 0.5 - 1.0 EGFR NON-AFR. AMER. >60 <=90 03/15/2020 [facility] Final Result * CBC (OUTSIDE LAB) (03/15/2020) WBC 6.6 HGB 13.6 HCT 41.9 PLT 313 03/15/2020 [facility] Doc [facility]-OUTSIDE/ABSTRACTED Final Result documented in this encounter Visit Diagnoses Not on filedocumented in this encounter Additional Health Concerns Infection Onset Date Last Indicated Resolved Time COVID-19 Rule Out 03/20/2020 03/20/2020 05/19/2020 12:33 AM HEALTH AND SAFETY CONSULTANT documented as of this encounter Care Teams Union Carpenter Relationship Specialty Start Date End Date Cecilia Cárdenas FNP [address] [place] [id number] PCP - General Nurse Practitioner Family 07/31/19 documented as of this encounter
--- OUTSIDE RECORDS SUMMARY | 2024-09-04 00:13 | XMS_ITS | Clinical Summary ---
Author Organization [facility] Address [address] [place] [address] Care Team Providers Care Risk And Compliance Analytics Director Name Role Phone Anthony Camacho MD Primary Care Provider [phone] Source Comments [facility],non-owned Affiliates and Associated Physician Practices is amultiple site organization consisting of ambulatory clinics and hospital sitesin [place], [place], [place] and [place]. This disclosure is being madepursuant to the Care Everywhere program and may not contain all information available regarding this patient. Last updated 18.[facility] Allergies No known active allergies Medications * Be aware that medications may not be up to date on this document. Alwaysverify current medications with the patient. No known medications Active Problems Problem Noted Date Diagnosed Date Vitiligo 01/06/2021 Primary osteoarthritis involving multiple joints 01/06/2021 Family History Medical History Relation Name Comments Cancer - Esophageal Father Dementia Maternal Grandmother Hypertension Maternal Grandmother Arthritis - Osteo Mother Cancer - Breast Mother Cancer - Other Paternal Grandfather Diabetes - Type 1 Paternal Grandmother Relation Name Status Comments Father Maternal Grandmother Mother Paternal Grandfather Paternal Grandmother Social History Tobacco Use Types Packs/Day Years Used Date Smoking Tobacco: Never PHQ-2 Answer Date Recorded PHQ2 TOTAL SCORE 0 01/06/2021 Comments Unknown Sex and Gender Information Value Date Recorded Sex Assigned at Not on file Legal Sex Female 2:25 PM CDT Gender Identity Not on file Sexual Orientation Not on file Last Filed Vital Signs Vital Sign Reading Time Taken Comments Blood Pressure 110/72 01/06/2021 10:48 AM CDT Pulse 93 09/06/2016 2:40 PM CDT Temperature 37.3 C (99.2 F) 01/06/2021 10:48 AM CDT Respiratory Rate 16 09/06/2016 2:40 PM CDT Oxygen Saturation 99% 09/06/2016 2:40 PM CDT Inhaled Oxygen Concentration - - Weight 63.9 kg (140 lb 12.8 oz) 021 10:48 AM CDT Height 170.2 cm (5' 7 ) 01/06/2021 10:4 8 AM CDT Body Mass Index 22.05 01/06/2021 10:48 AM CDT Plan of Treatment Health Maintenance Due Date Last Done Comments COLOGUARD (AGES 45-75) - COL ON CA SCREENING 1968 COLON MONITORING 1968 COLONOSCOPY - COLON CA SCREENING 1968 CT COLONOGRAPHY - COLON CA SCREENING 1968 Colorectal Cancer Screening 1968 FIT - COLON CA SCREENING 1968 FLEX SIG - COLON CA SCREENING 1968 LIPID TESTING 1968 PAP SMEAR 1968 HIV SCREENING 09/06/1983 HEPATITIS C SCREENING 09/01/1986 DTAP/TDAP/TD VACCINES (1 - Tdap) 09/06/1987 HEPATITIS B VACCINE (1 of 3 - 19+ 3-dose series) 09/06/1987 PNEUMOCOCCAL VACCINE 50+ (1 of 1 - PCV) 2018 ZOSTER VACCINE (1 of 2) 2018 MAMMOGRAM 12/20/2022 12/20/2020 COVID-19 VACCINE (1 - 2023-2 5 season) 2024 DEPRESSION SCREENING 05/24/2024 INFLUENZA VACCINE (Season Ended) 2025 03/22/20 19 HIB VACCINE Aged Out No longer eligi ble based on patient's age to complete this topic HPV VACCINE Aged Out No longer eligi ble based on patient's age to complete this topic MENINGOCOCCAL (Group B) VACC INE SHARED DECISION-MAKING Aged Out No longer eligibl e based on patient's age to complete this topic MENINGOCOCCAL GROUPS A/C/Y/W VACCINE Aged Out No longer eligible b ased on patient's age to complete this topic PNEUMOCOCCAL VACCINE Aged Out No long er eligible based on patient's age to complete this topic Insurance [facility] AET Care Teams Risk And Compliance Analytics Director Relationship Specialty Start Date End Date Anthony Camacho MD [address] [facility] [address] [place] [phone] PCP - General Internal Medicine 09/06/16
--- OUTSIDE RECORDS SUMMARY | 2024-09-04 00:13 | XMS_ITS | Referral Summary ---
Author Organization [facility] Address [address] [place] [address] Phone Care Team Providers Care Road Marker Name Role Phone Alexander Choudhary DO Unavailable [phone] Cecilia Cárdenas NP Primary Care Provider [phone] Chantel Arroyo MD Unavailable [phone] Allergies No known active allergies Medications cholecalciferol, vitamin D3, (CHOLECALCIFEROL , VIT D3,,BULK,) 100,000 unit/gram powder Take by mouth. 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 For women [...] Most Recently Relevant to Health Maintenance Insurance [employer] Care Teams Road Marker Relationship Specialty Start Date End Date Cecilia Cárdenas NP [address] [place] [address] [phone] PCP - General 11/03/19 Alexander Choudhary DO [address] [place] [id number] Medical Oncologist/Equipment Planner Hematology and Oncology 02/18/18 Chantel Arroyo MD [facility] [address] [phone] Referring Physician Gynecology 03/10/22
[2024-09-04 06:52] VITALS: BP 131/84; PULSE 90; RESP 20; TEMP 35.9; O2SAT 100; BMI 22.1
[2024-09-04] MEDS: LACTATED RINGERS 1,000 ML 150 ML IV CONT (07:03)
--- NOTE | 2024-09-04 07:46 | PM.HPGS ---
History of Present Illness History of Present Illness Consent: Risks, benefits, and alternatives have been discussed and questions answered. Patient agrees to proceed with procedure. 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 Review of Systems Review of Systems: All systems reviewed & are unremarkable except as noted in HPI and below PMFSH Past Medical History Medical History (Updated 09/04/24 @ 07:47 by Robin Patel MD) History of colon cancer Surgical History Surgical History H/O colectomy Family History Family History (Updated 12/22/18 @ 07:34 by DOCTOR UNKNOWN) Mother Family history of osteoporosis Family history of arthritis Family history of osteoarthritis Father Family history of malignant neoplasm of esophagus Patient's father is in good health Grandparent Family history of dementia Diabetes mellitus Other Cerebrovascular accident Social History Social History Smoking status: Never smoker Alcohol intake: never Substance use: never Substance use type: does not use Living arrangements: with family Gender identity (if verbalized by the patient): Female Spiritual care concerns: No Meds Home Medications and Allergies Home Medications ?Medication ?Instructions ?Recorded ?Confirmed ?Type acyclovir 400 mg tablet 400 mg PO DAILY PRN Cold Sores 03/27/21 09/04/24 History Allergies Allergy/AdvReac Type Severity Reaction Status Date / Time No Known Allergies Allergy Verified 09/04/24 06:50 Vital Signs Vital Signs - 24 hr 09/04/24 06:52 Temperature 96.6 F L Pulse Rate 90 Respiratory Rate 20 Blood Pressure 131/84 Pulse Oximetry 100 Oxygen Delivery Room Air Exam Const: General: comfortable and no acute distress HENMT: Face/Nose/Sinus: Normal nares present Eyes: General: appearance normal, both eyes and all related structures Neck: Neck: no JVD Resp: Auscultation: clear to auscultation bilaterally Cardio: Rate: regular rate Rhythm: regular rhythm GI: Inspection: non-distended GI Palp: Yes Soft to palpation Skin: General skin exam: normal color Neuro: Speech: normal speech Extrem: General: normal to inspection Psych: Mental Status: mental status grossly normal Assessment and Plan Assessment and plan (1) History of colon cancer: Code(s): Z85.038 - Personal history of other malignant neoplasm of large intestine Status: Acute Assessment and Plan: colonoscopy
--- NOTE | 2024-09-04 07:50 | P.PNAN_ITS ---
Anes - Initial Pre Proc Eval Procedure: Operation Date: 09/04/24 08:00 Proposed Procedures p Colonoscopy - Robin Patel MD Date/Time: 09/04/24 07:50 Surgeon: Robin Patel MD Pre Op Diagnosis: Personal hx of neoplasm large intestine Patient Data Age: 53 Gender: F Height: 1.7 m Weight: 64.3 kg Last Vital Signs Temp 96.6 F L 09/04/24 06:52 Pulse 90 09/04/24 06:52 Resp 20 09/04/24 06:52 BP 131/84 09/04/24 06:52 Pulse Ox 100 09/04/24 06:52 O2 Del Method Room Air 09/04/24 06:52 Allergies Allergy/AdvReac Type Severity Reaction Status Date / Time No Known Allergies Allergy Verified 09/04/24 06:50 Home Medications ?Medication ?Instructions ?Recorded ?Confirmed ?Type acyclovir 400 mg tablet 400 mg PO DAILY PRN Cold Sores 03/27/21 09/04/24 History Patient hx anesthesia problems: none Family hx anesthesia problems: none Results Review: All pre-operative results and documents have been reviewed as part of the pre- operative evaluation. [facility] Past Medical History Medical History (Updated 09/04/24 @ 07:47 by Robin Patel MD) History of colon cancer Surgical History Surgical History H/O colectomy Family History Family History (Updated 12/22/18 @ 07:34 by DOCTOR UNKNOWN) Mother Family history of osteoporosis Family history of arthritis Family history of osteoarthritis Father Family history of malignant neoplasm of esophagus Patient's father is in good health Grandparent Family history of dementia Diabetes mellitus Other Cerebrovascular accident Social History Social History Smoking status: Never smoker Alcohol intake: never Substance use: never Substance use type: does not use Living arrangements: with family Gender identity (if verbalized by the patient): Female Spiritual care concerns: No Anes - Eval Final PreProcedure Day of Procedure 09/04/24 07:50 Patient weight: normal Heart: regular rate and rhythm Lungs: clear to auscultation Airway: Mallampati scale class II Neurological: alert and oriented Last oral intake: >/= 8 hours ASA classification: III Emergent: no Anesthetic plan: proceed Anesthesia type and monitoring: general GIVS and standard monitoring Results Review: All pre-operative results and documents have been reviewed as part of the pre- operative evaluation. Informed Consent: The patient's anesthetic plan and its attendant risks and benefits were discussed with the patient/family/POA. Questions were solicited and answers provided to the satisfaction of the patient/family/POA.
[2024-09-04 08:06] VITALS: BP 101/62; PULSE 84; RESP 20; O2SAT 100
[2024-09-04 08:06] LABS: BEDSIDEPREGUCG Negative (Negative)
[2024-09-04 08:16] VITALS: BP 106/67; PULSE 73; RESP 20; O2SAT 100
[2024-09-04 08:26] VITALS: BP 119/80; PULSE 72; RESP 20; O2SAT 100
== END 2024-09-04 08:38 | disposition home or self-care (01) ==
PROVIDERS: PCP Nurse Practitioner Family; Referring Provider Internal Medicine Gastroenterology; Visit Provider Internal Medicine Gastroenterology
PROC: 0DJD8ZZ Inspection of Lower Intestinal Tract, Via Natural or Artificial Opening Endoscopic (ICD-10-PCS; CPT 45378; principal; 2024-09-04 08:00)
DX: Z12.11 Encounter for screening for malignant neoplasm of colon (principal); K64.8 Other hemorrhoids; Z98.890 Other specified postprocedural states; Z98.0 Intestinal bypass and anastomosis status; Z90.49 Acquired absence of other specified parts of digestive tract; Z85.038 Personal history of other malignant neoplasm of large intestine; Z92.21 Personal history of antineoplastic chemotherapy; Z80.0 Family history of malignant neoplasm of digestive organs; Z82.49 Family history of ischemic heart disease and other diseases of the circulatory system
CPT/HCPCS: 45378; J2003; J2704; J7120

== ENCOUNTER 2024-10-12 14:43 | Outpatient (CLI) | payer OTHER, SELFPAY ==
--- NOTE | ~2024-10-12 | MR_ITS ---
MRI of the left knee Clinical history: Injury Technique: Coronal proton density and proton density-weighted images, sagittal proton-density and T2 fat-sat images, and axial proton-density fat-saturated images were acquired. Findings: Anterior and posterior cruciate ligaments are intact. Medial collateral ligament and the la teral collateral ligament complex are intact. Popliteus tendon is intact. Medial and lateral menisci are intact, without evidence of tear. There is focal grade 1 chondral lesion at the patellar apex. There is mild chondral thinning along th e inner margin of the lateral femoral condyle.. Extensor mechanism is intact. No significant joint effusion or Patiño's cyst. Impression: Minimal degenerative changes, as above. No ligamentous injury or meniscal tear seen. Reviewed, dictated and finalized at location . Impression: Minimal degenerative changes, as above. No ligamentous injury or meniscal tear seen.
== END 2024-10-12 14:44 | disposition home or self-care (01) ==
PROVIDERS: PCP Nurse Practitioner Family; Visit Provider Orthopaedic Surgery
DX: M17.12 Unilateral primary osteoarthritis, left knee (principal); S89.92XA Unspecified injury of left lower leg, initial encounter; X58.XXXA Exposure to other specified factors, initial encounter
CPT/HCPCS: 73721